=== PATIENT | male | born 1965 | race Caucasian/White ===

== ENCOUNTER 2017-01-03 08:07 | Inpatient (IN) | payer OTHER ==
[2017-01-02 09:12] LABS: BLOOD UREA NITROGEN 26 mg/dL (7-18)
[2017-01-02 09:16] LABS: ASPARTATE AMINO TRANSFERASE 39 U/L (15-37)
[~2017-01-03] VITALS: Ht 167.6 cm; Wt 105.5 kg
[~2017-01-03 08:07] MED LIST: ESCI10TA10 PO; INSU300I SC; LIRA0.6P SC; LISI-167 PO; METF500T4 PO
[2017-01-03] MEDS ORDERED: FENTANYL PF 100 MCG/2ML ONE (10:00)
[2017-01-03] MEDS ORDERED: BIVALIRUDIN 250 MG ONE (10:01)
[2017-01-03] MEDS ORDERED: LIDOCAINE 2%, 20ML ONE (10:01)
[2017-01-03] MEDS ORDERED: NITROGLYCERIN 5 MG/ML, 10ML ONE (10:01)
[2017-01-03] MEDS ORDERED: HEPARIN 1,000 UNITS/ML, 10ML ONE (10:01)
[2017-01-03] MEDS ORDERED: MIDAZOLAM 1 MG/ML, 5ML ONE (10:01)
[2017-01-03] MEDS ORDERED: VERAPAMIL 2.5 MG/ML, 2ML ONE (10:01)
[2017-01-03] MEDS ORDERED: DIPHENHYDRAMINE 50 MG/ML, 1ML ONE (10:56)
[2017-01-03] MEDS ORDERED: ZOLPIDEM 5MG TABLET PO PRN (11:30)
[2017-01-03] MEDS ORDERED: ACETAMINOPHEN 325 MG TABLET PO PRN (11:30)
[2017-01-03] MEDS: ONDANSETRON 2MG/ML, 2ML IVPush PRN (12:57)
[2017-01-03 13:48] VITALS: BP 103/68
[2017-01-03] MEDS ORDERED: metFORMIN 500 MG TABLET PO SCH (17:00)
[2017-01-03 19:00] LABS: BLOOD UREA NITROGEN 21 mg/dL (7-18)
[2017-01-03 19:06] VITALS: BP 110/68
[2017-01-03 19:09] LABS: ASPARTATE AMINO TRANSFERASE 33 U/L (15-37)
[2017-01-04 02:49] VITALS: BP 107/72
[2017-01-04 07:23] VITALS: BP 133/80
[2017-01-04] MEDS: CITALOPRAM 20 MG TABLET PO SCH (08:01)
[2017-01-04] MEDS: LISINOPRIL 10 MG TABLET PO SCH (08:01)
[2017-01-04] MEDS: ONDANSETRON 2MG/ML, 2ML IVPush PRN (08:01)
[2017-01-04] MEDS: LIRAGLUTIDE SQ SCH (09:00)
[2017-01-04] MEDS: [UNRECOGNIZED DRUG - OTHER] SQ SCH (09:00)
[2017-01-04] MEDS ORDERED: ENOXAPARIN 40 MG/0.4 ML SQ SCH (11:30)
[2017-01-04] MEDS: INSULIN DETEMIR 100 UNITS/ML, PEN SQ-INSULIN SCH (11:42)
[2017-01-04] MEDS: INSULIN ASPART 100 UNITS/ML, PEN SQ-INSULIN SCH ×3 (11:57→21:18)
[2017-01-04 12:58] VITALS: BP 127/78
[2017-01-04 18:46] VITALS: BP 110/64
[2017-01-04] MEDS: ATORVASTATIN 20 MG TABLET PO SCH (21:17)
[2017-01-05 01:34] VITALS: BP 114/72
[2017-01-05 05:54] LABS: BLOOD UREA NITROGEN 23 mg/dL (7-18)
[2017-01-05] MEDS ORDERED: ASPIRIN 81 MG TABLET EC PO SCH (06:00)
[2017-01-05] MEDS ORDERED: GADOBUTROL 10 MMOL/10 ML VIAL ONE (08:02)
[2017-01-05] MEDS: INSULIN DETEMIR 100 UNITS/ML, PEN SQ-INSULIN SCH (08:41)
[2017-01-05] MEDS: [UNRECOGNIZED DRUG - OTHER] SQ SCH (08:42)
[2017-01-05] MEDS: LIRAGLUTIDE SQ SCH (08:42)
[2017-01-05] MEDS: CITALOPRAM 20 MG TABLET PO SCH (08:42)
[2017-01-05] MEDS: INSULIN ASPART 100 UNITS/ML, PEN SQ-INSULIN SCH ×4 (08:42→21:45)
[2017-01-05] MEDS: LISINOPRIL 10 MG TABLET PO SCH (08:42)
[2017-01-05] MEDS ORDERED: LOSA100T6 PO (08:44)
[2017-01-05 14:03] VITALS: BP 117/77
[2017-01-05 19:22] VITALS: BP 126/78
[2017-01-05] MEDS: ATORVASTATIN 20 MG TABLET PO SCH (21:43)
[2017-01-06 02:13] VITALS: BP 122/75
[2017-01-06] MEDS: INSULIN ASPART 100 UNITS/ML, PEN SQ-INSULIN SCH ×4 (06:21→20:45)
[2017-01-06] MEDS ORDERED: FENTANYL PF 100 MCG/2ML ONE (08:42)
[2017-01-06] MEDS ORDERED: BIVALIRUDIN 250 MG ONE ×2 (08:43→08:54)
[2017-01-06] MEDS ORDERED: LIDOCAINE 2%, 20ML ONE (08:43)
[2017-01-06] MEDS ORDERED: HEPARIN 1,000 UNITS/ML, 10ML ONE (08:43)
[2017-01-06] MEDS ORDERED: PRASUGREL 10 MG TABLET ONE (08:43)
[2017-01-06] MEDS ORDERED: MIDAZOLAM 1 MG/ML, 5ML ONE (08:43)
[2017-01-06] MEDS ORDERED: VERAPAMIL 2.5 MG/ML, 2ML ONE (08:43)
[2017-01-06] MEDS ORDERED: DIPHENHYDRAMINE 50 MG/ML, 1ML ONE (09:35)
[2017-01-06] MEDS ORDERED: SODIUM CHLORIDE 0.9% 1,000 ML IV SCH (11:23)
[2017-01-06] MEDS ORDERED: ASPIRIN 81 MG TABLET CHEW PO ONE (11:30)
[2017-01-06] MEDS: LISINOPRIL 10 MG TABLET PO SCH (11:43)
[2017-01-06] MEDS: INSULIN DETEMIR 100 UNITS/ML, PEN SQ-INSULIN SCH (11:43)
[2017-01-06] MEDS: LIRAGLUTIDE SQ SCH (11:43)
[2017-01-06] MEDS: [UNRECOGNIZED DRUG - OTHER] SQ SCH (11:43)
[2017-01-06] MEDS: CITALOPRAM 20 MG TABLET PO SCH (11:48)
[2017-01-06] MEDS: PRASUGREL 10 MG TABLET PO SCH (11:49)
[2017-01-06 15:19] VITALS: BP 103/66
[2017-01-06 17:24] LABS: IS PT STATUS REG ER OR PRE ER? NO
[2017-01-06 20:15] VITALS: BP 132/78
[2017-01-06] MEDS: ATORVASTATIN 20 MG TABLET PO SCH (20:45)
[2017-01-07 01:26] VITALS: BP 114/76
[2017-01-07 05:50] LABS: BLOOD UREA NITROGEN 23 mg/dL (7-18)
[2017-01-07 06:59] VITALS: BP 118/78
[2017-01-07] MEDS: INSULIN DETEMIR 100 UNITS/ML, PEN SQ-INSULIN SCH (08:14)
[2017-01-07] MEDS: INSULIN ASPART 100 UNITS/ML, PEN SQ-INSULIN SCH (08:17)
[2017-01-07] MEDS: CITALOPRAM 20 MG TABLET PO SCH (08:18)
[2017-01-07] MEDS: PRASUGREL 10 MG TABLET PO SCH (08:18)
[2017-01-07] MEDS: [UNRECOGNIZED DRUG - OTHER] SQ SCH (08:23)
[2017-01-07] MEDS: LISINOPRIL 10 MG TABLET PO SCH (08:23)
[2017-01-07] MEDS: LIRAGLUTIDE SQ SCH (08:23)
[2017-01-07] MEDS ORDERED: ASPIRIN 81 MG TABLET EC PO SCH (09:00)
[2017-01-07] MEDS ORDERED: ASPI-621 PO (09:13)
[2017-01-07] MEDS ORDERED: PRAS10TA4 PO (09:13)
[2017-01-07] MEDS ORDERED: ATOR20TA9 PO (09:13)
[2017-01-07] MEDS ORDERED: NITR0.4T8 SL (09:13)
== END 2017-01-07 12:43 | disposition home or self-care (01) | DRG 247 ==
LOC: CACL 08:07 → ORIP 11:29 → 5SO 12:42 → DCLOUNGE 01-07 12:27
PROVIDERS: ADMIT Internal Medicine Cardiovascular Disease; ATTEND Internal Medicine Cardiovascular Disease
PROC: 4A023N7 Measurement of Cardiac Sampling and Pressure, Left Heart, Percutaneous Approach (ICD-10-PCS; principal; 2017-01-03)
PROC: B2111ZZ Fluoroscopy of Multiple Coronary Arteries using Low Osmolar Contrast (ICD-10-PCS; 2017-01-03)
PROC: B2151ZZ Fluoroscopy of Left Heart using Low Osmolar Contrast (ICD-10-PCS; 2017-01-03)
PROC: 027135Z Dilation of Coronary Artery, Two Arteries with Two Drug-eluting Intraluminal Devices, Percutaneous Approach (ICD-10-PCS; 2017-01-06)
DX: I25.110 Atherosclerotic heart disease of native coronary artery with unstable angina pectoris (principal); E11.9 Type 2 diabetes mellitus without complications; I10 Essential (primary) hypertension; E78.5 Hyperlipidemia, unspecified; H49.22 Sixth [abducent] nerve palsy, left eye; H53.2 Diplopia; Z82.49 Family history of ischemic heart disease and other diseases of the circulatory system; Z83.3 Family history of diabetes mellitus; Z83.6 Family history of other diseases of the respiratory system
CPT/HCPCS: 36415; 70450; 70549; 70551; 70553; 71020; 80048; 80053; 82040; 82962; 84484; 85014; 85018; 85025; 85610; 85730; 92978; 93005; 93306; 93458; 93880; 99156; 99157; A9585; C1753; C1760; C1894; C9600; J0583; J1644; J1815; J2250; J2405; J3010; J3490; C1725; C1769; C1874; C1887; J1200; J7030; Q9967